=== PATIENT | female | born 1975 | race Caucasian/White ===

== ENCOUNTER → 2016-08-07 | Outpatient (CLI) | payer MEDICAID ==
[~2016-08-07] MED LIST: ATOR10TA64 PO; ESTR2TAB PO; FLUO20CA30 PO; LEVO50TA4 PO; LURA80TA PO; METF500T4 PO; OXYC-533 PO; PHEN-412 PO; ZOLM5TAB7 PO
--- NOTE | 2016-08-07 15:48 | DI ---
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 Findings: Alignment of the lumbar spine is within normal limits. No acute fracture identified. Bone marrow signal intensity is normal. Conus medullaris terminates normally at L1-L2. The paraspinal soft tissues are within normal limits. Segmental analysis: L1-L2: Normal. L2-L3: Left foraminal small disk protrusion. No central canal stenosis. Disk material abuts the exiting left L2 nerve root causing mild neural foraminal narrowing. No right foraminal stenosis. L3-L4: No focal disk herniation, central canal or neural foraminal stenosis L4-L5: Small central disk protrusion with mild degenerative facet disease contributes to mild central canal narrowing. Moderate bilateral neural foraminal stenosis. L5-S1: Small central disk protrusion with degenerative facet disease contributes to mild central canal narrowing. There is also mild bilateral neural foraminal narrowing. Impression: Mild degenerative changes as above. .
== END ==
LOC: IMA 13:51
PROVIDERS: ATTEND Family Medicine
DX: M51.16 Intervertebral disc disorders with radiculopathy, lumbar region (principal); M47.26 Other spondylosis with radiculopathy, lumbar region; M47.27 Other spondylosis with radiculopathy, lumbosacral region